=== PATIENT | female | born 1965 | race African-American/Black ===

== ENCOUNTER 2019-10-11 14:38 | Observation (INO) ==
[2019-10-11] MEDS ORDERED: DEXTROSE 10% 250 ML BAG IV PRN (17:08)
[2019-10-11] MEDS ORDERED: GLUCAGON 1 MG VIAL IM PRN (17:08)
[2019-10-11 18:02] LABS: Basophils % 0.3 % (0.0-0.8); Eosinophils % 0.3 % (0.00-10.9); Hematocrit 42.6 VOL% (35.7-47.0); Hemoglobin 12.8 GM/DL (12.0-16.0); Immature Granulocytes % 0.5 %; Immature Granulocytes Absolute 0.05 #; Lymphocytes # 2.7 10*3/uL (1.4-4.0); Lymphocytes % 25.8 % (21.3-54.2); Mean Corpuscular Volume 89.9 FL (87-102); Mean Platelet Volume 11.6 FL (9.6-12.0); Monocytes % 5.2 % (1.7-12.7); Neutrophils % 67.9 % (38.7-73.9); Platelet Count 288 T/CUMM (130-400); Red Blood Count 4.74 MC/CUMM (3.8-5.5); Red Cell Distribution Width 14.1 % (9.3-17.3); White Blood Count 10.4 T/CUMM (4-12)
[2019-10-11 18:07] LABS: Bilirubin,Total 0.6 MG/DL (0.2-1.0); Calcium 9.6 MG/DL (8.5-10.1); Osmolality,Calculated 279.4 MOS/KG (273-304); Total Protein 8.9 G/DL (6.4-8.3)
[2019-10-11] MEDS ORDERED: hydrALAZINE 20 MG/1 ML VIAL IV PRN (18:30)
[2019-10-11] MEDS: FUROSEMIDE 40 MG/4 ML VIAL IV SCH (18:48)
[2019-10-11] MEDS: ENOXAPARIN 40 MG/0.4 ML SYRINGE SUBCUT SCH (21:42)
[2019-10-12 08:36] LABS: Basophils % 0.3 % (0.0-0.8); Eosinophils # 0.1 10*3/uL (0.0-0.87); Eosinophils % 0.6 % (0.00-10.9); Hemoglobin 12.2 GM/DL (12.0-16.0); Immature Granulocytes % 0.3 %; Immature Granulocytes Absolute 0.03 #; Lymphocytes # 1.8 10*3/uL (1.4-4.0); Lymphocytes % 18.5 % (21.3-54.2); Mean Corpuscular HGB Conc 31.3 GM/DL (32-36); Mean Corpuscular Volume 87.8 FL (87-102); Mean Platelet Volume 11.3 FL (9.6-12.0); Monocytes % 6.6 % (1.7-12.7); Neutrophils % 73.7 % (38.7-73.9); Platelet Count 237 T/CUMM (130-400); Red Blood Count 4.44 MC/CUMM (3.8-5.5); White Blood Count 9.5 T/CUMM (4-12)
[2019-10-12] MEDS ORDERED: hydroCHLOROthiazide 25 MG TABLET PO SCH (09:00)
[2019-10-12] MEDS ORDERED: amLODIPine 2.5 MG TABLET PO SCH (09:00)
[2019-10-12] MEDS: FUROSEMIDE 40 MG/4 ML VIAL IV SCH ×2 (09:04→16:18)
[2019-10-12] MEDS: carvediloL 6.25 MG TABLET PO SCH ×2 (09:04→21:52)
[2019-10-12 09:13] LABS: Albumin 3.4 G/DL (3.4-5.0); Calcium 9.1 MG/DL (8.5-10.1); Osmolality,Calculated 277.5 MOS/KG (273-304); Risk Ratio 3.9; Total Protein 7.7 G/DL (6.4-8.3); VLDL CHOLESTEROL 24.2 MG/DL
[2019-10-12 19:51] LABS: Barbiturates Screen,Urine Negative (Negative); Benzodiazepines Screen,Urine Negative (Negative); Cannabinoid Screen,Urine Negative (Negative); Opiate Screen,Urine Negative (Negative); Phencyclidine Screen,Urine Negative (Negative)
[2019-10-12] MEDS: SACUBITRIL/VALSARTAN 49-51 MG TABLET PO SCH (21:52)
[2019-10-12] MEDS: ENOXAPARIN 40 MG/0.4 ML SYRINGE SUBCUT SCH (21:54)
[2019-10-13 06:03] LABS: Calcium 9.7 MG/DL (8.5-10.1); Osmolality,Calculated 275.8 MOS/KG (273-304)
[2019-10-13] MEDS ORDERED: POTASSIUM CHLORIDE 20 MEQ TABLET PO ONE (06:30)
[2019-10-13] MEDS: carvediloL 6.25 MG TABLET PO SCH (09:18)
[2019-10-13] MEDS: FUROSEMIDE 40 MG/4 ML VIAL IV SCH (09:18)
[2019-10-13] MEDS: SACUBITRIL/VALSARTAN 49-51 MG TABLET PO SCH (09:18)
[2019-10-13 11:51] VITALS: BP 92/66
== END 2019-10-13 15:28 | disposition home or self-care (01) ==
LOC: N.3E → SUATTDRO 16:42
PROVIDERS: ADMIT Internal Medicine; ATTEND Internal Medicine